=== PATIENT | male | born 1960 | race Caucasian/White ===

== ENCOUNTER 2016-07-21 09:16 | Emergency (ER) | payer OTHER ==
[~2016-07-21 09:16] MED LIST: PRED20TA PO
[2016-07-21 09:50] VITALS: BP 143/92
--- NOTE | 2016-07-21 15:38 | ED.ADGEN ---
Past History Past Medical History: High Cholesterol, Hypertension, Other Past Surgical History: Knee Replacement Alcohol Use: None Drug Use: None Adult General Chief Complaint Chief Complaint Staple removal right knee HPI HPI Patient is a 55-year-old male presents for staple removals right knee. Les placed 10 days ago in this ED, no complications. Review of Systems Review of Systems ROS as per HPI Allergies Allergies Allergies Coded Allergies Type Severity Reaction Last Updated Verified Penicillins Allergy Unknown 07/11/16 Yes morphine Allergy Unknown 07/11/16 Yes Uncoded Allergies Type Severity Reaction Last Updated Verified STANTONS Allergy Unknown 07/11/16 Physical Exam Physical Exam Constitutional: Well developed, well nourished, no acute distress, non-toxic appearance. Extremities: Right knee, healing incision without cellulitis, les intact. Current Patient Data Vital Signs Vital Signs Date Time Temp Pulse Resp B/P Pulse Ox O2 Delivery O2 Flow Rate FiO2 07/21/16 09:50 78 18 143/92 95 Room Air 07/21/16 09:16 97.4 EKG EKG [] Radiology/Procedures Radiology/Procedures [] Impressions: Encounter for les removal. Course & Med Decision Making Course & Med Decision Making Pertinent Labs and Imaging studies reviewed. (See chart for details) [Sutures removed per nursing without complication.] Final Impression Final Impression [1. Encounter for staple removal] Problems: Dragon Disclaimer Dragon Disclaimer This electronic medical record was generated, in whole or in part, using a voice recognition dictation system. PATTI SCHWAB DO Jul 21, 2016 15:38
== END 2016-07-21 09:50 | disposition home or self-care (01) ==
LOC: ER 09:16
DX: S81.011D Laceration without foreign body, right knee, subsequent encounter (principal); E78.00 Pure hypercholesterolemia, unspecified; I10 Essential (primary) hypertension; Z96.651 Presence of right artificial knee joint; Z88.0 Allergy status to penicillin; Z88.5 Allergy status to narcotic agent; X58.XXXD Exposure to other specified factors, subsequent encounter; Y99.8 Other external cause status; Y92.89 Other specified places as the place of occurrence of the external cause
CPT/HCPCS: 99282

== ENCOUNTER 2017-09-12 18:57 | Observation (INO) | payer OTHER ==
[~2017-09-12] VITALS: Ht 185.4 cm; Wt 116.7 kg
--- NOTE | 2017-09-12 19:08 | ED.ADGEN ---
Past History Past Medical History: High Cholesterol, Hypertension, Other Past Surgical History: Knee Replacement, Other Alcohol Use: None Drug Use: None Adult General Chief Complaint Chief Complaint "..I guess I had some mental status changes... victorino dizzy... It may have the extra pain meds I took.. my knee have been giving me problems.. 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 Pt. has had bilateral knee surgery. Lt is in splint. Pt. has been following at [facility]. for the increased pain , edema in Rt. knee. Pt. reports they felt may have had lig. injury, damage his implants or possible infection of knee. Recently told infection was ruled out. Pt. has marked edema of Rt. knee. Pt. stated he took extra pain meds tonight and may be cause of his dizziness. Review of Systems Review of Systems Constitutional: Denies fever or chills [] Eyes: Denies change in visual acuity, redness, or eye pain [] HENT: Denies nasal congestion or sore throat [] Respiratory: Denies cough or shortness of breath [] Cardiovascular: No additional information not addressed in HPI [] GI: Denies abdominal pain, nausea, vomiting, bloody stools or diarrhea [] : Denies dysuria or hematuria [] Musculoskeletal: Denies back pain or joint pain []Bilateral Knee pain. Integument: Denies rash or skin lesions [] Neurologic: Denies headache, focal weakness or sensory changes []Dizzy. Confusion Endocrine: Denies polyuria or polydipsia [] All other systems were reviewed and found to be within normal limits, except as documented in this note. Family History Family History Non-contributory Current Medications Current Medications Current Medications Medications (Trade) Dose Ordered Sig/Deb Start Time Stop Time Status Last Admin Dose Admin Hydrocodone Bitartrate/ Ibuprofen (Vicoprofen 7.5-200) 2 tab PRN QID PRN 09/12/17 23:45 Iohexol (Omnipaque 300 Mg/ml) 75 ml 1X ONCE 09/12/17 22:00 09/12/17 22:01 DC 09/12/17 22:01 75 ML Lactated Ringer's 1,000 ml @ 1,000 mls/hr Q1H 09/12/17 19:15 09/12/17 20:14 DC 09/12/17 20:09 1,000 MLS/HR Allergies Allergies Allergies Coded Allergies Type Severity Reaction Last Updated Verified Penicillins Allergy Unknown 07/11/16 Yes Qqwgxcp-Hho-Aow Reductase Inhibitor Allergy Unknown 09/12/17 Yes morphine Allergy Unknown 07/11/16 Yes Physical Exam Physical Exam Constitutional: Moderately acute distress, non-toxic appearance. [] HENT: Normocephalic, atraumatic, bilateral external ears normal, oropharynx moist, no oral exudates, nose normal. [] Eyes: PERRLA, EOMI, conjunctiva normal, no discharge. [] Neck: Normal range of motion, no tenderness, supple, no stridor. []Palpable thyroid Cardiovascular:Heart rate regular rhythm, no murmur [] Lungs & Thorax: Bilateral breath sounds clear to auscultation [] Abdomen: Bowel sounds normal, soft, no tenderness, no masses, no pulsatile masses. [] Skin: Warm, dry, no erythema, no rash. [] Back: No tenderness, no CVA tenderness. [] Extremities: bilateral knee tenderness, no cyanosis, no clubbing, ROM intact, bilateral knee edema. [] No obvious cording noted. Neurologic: Alert and oriented X 3, normal motor function, normal sensory function, no focal deficits noted. []( Pt states Dizziness cleared by time he arrived at ED) Psychologic: Affect normal, judgement normal, mood normal. [] Current Patient Data Vital Signs Vital Signs Date Time Temp Pulse Resp B/P (MAP) Pulse Ox O2 Delivery O2 Flow Rate FiO2 09/12/17 23:31 67 18 138/82 (100) 97 Room Air 09/12/17 19:08 97.8 Lab Results Laboratory Tests Test 09/12/17 19:10 09/12/17 19:49 09/12/17 19:58 Urine Collection Type Unknown Urine Color Yellow Urine Clarity Cloudy Urine pH 8.0 Urine Specific [place] 1.020 Urine Protein Neg (NEG-TRACE) Urine Glucose (UA) Neg mg/dL (NEG) Urine Ketones (Stick) Neg mg/dL (NEG) Urine Blood Trace (NEG) Urine Nitrite Neg (NEG) Urine Bilirubin Neg (NEG) Urine Urobilinogen Dipstick 0.2 mg/dL (0.2 mg/dL) Urine Leukocyte Esterase Neg (NEG) Urine RBC 3-5 /HPF (0-2) Urine WBC 1-4 /HPF (0-4) Urine Squamous Epithelial Cells Occ /LPF Urine Amorphous Sediment Present /HPF Urine Bacteria 0 /HPF (0-FEW) Glucose (Fingerstick) 125 mg/dL (70-99) H White Blood Count 5.9 x10^3/uL (4.0-11.0) Red Blood Count 4.75 x10^6/uL (4.30-5.70) Hemoglobin 14.7 g/dL (13.0-17.5) Hematocrit 42.2 % (39.0-53.0) Mean Corpuscular Volume 89 fL (79-100) Mean Corpuscular Hemoglobin 31 pg (25-35) Mean Corpuscular Hemoglobin Concent 35 g/dL (31-37) Red Cell Distribution Width 12.7 % (11.5-14.5) Platelet Count 194 x10^3/uL (140-400) Neutrophils (%) (Auto) 62 % (31-73) Lymphocytes (%) (Auto) 26 % (24-48) Monocytes (%) (Auto) 8 % (0-9) Eosinophils (%) (Auto) 3 % (0-3) Basophils (%) (Auto) 1 % (0-3) Neutrophils # (Auto) 3.7 x10^3uL (1.8-7.7) Lymphocytes # (Auto) 1.5 x10^3/uL (1.0-4.8) Monocytes # (Auto) 0.5 x10^3/uL (0.0-1.1) Eosinophils # (Auto) 0.1 x10^3/uL (0.0-0.7) Basophils # (Auto) 0.1 x10^3/uL (0.0-0.2) Prothrombin Time 10.5 SEC (9.4-11.4) Prothrombin Time INR 1.0 (0.9-1.1) PTT 28 SEC (23-33) D-Dimer (Devika) 0.80 mg/L (0.00-0.50) H Sodium Level 142 mmol/L (136-145) Potassium Level 4.1 mmol/L (3.5-5.1) Chloride Level 101 mmol/L (98-107) Carbon Dioxide Level 30 mmol/L (21-32) Anion Gap 11 (6-14) Blood Urea Nitrogen 13 mg/dL (8-26) Creatinine 0.8 mg/dL (0.7-1.3) Estimated GFR (Cockcroft-Gault) 100.7 Glucose Level 129 mg/dL (70-99) H Calcium Level 9.5 mg/dL (8.5-10.1) Magnesium Level 2.1 mg/dL (1.8-2.4) Total Bilirubin 0.8 mg/dL (0.2-1.0) Direct Bilirubin < 0.1 mg/dL (0.0-0.2) Aspartate Amino Transferase (AST) 27 U/L (15-37) Alanine Aminotransferase (ALT) 48 U/L (16-63) Alkaline Phosphatase 78 U/L (46-116) Creatine Kinase 147 U/L (39-308) Creatine Kinase MB (Mass) 1.7 ng/mL (0.0-3.6) Creatine Kinase MB Relative Index 1.2 % (0-4) Troponin I Quantitative < 0.017 ng/mL (0-0.055) OU-Ykb-R-Type Natriuretic Peptide 39 pg/mL (0-124) Total Protein 7.7 g/dL (6.4-8.2) Albumin 4.8 g/dL (3.4-5.0) Lipase 98 U/L (73-393) EKG EKG My interpretation of EKG shows a sinus rhythm at 62 bpm. Mild leftward axis. No findings acute STEMI of contralateral changes. Radiology/Procedures Radiology/Procedures []CT of head shows no shift, mass, edema, bleed, or fracture. See formal report when available.[] My interpretation chest x-ray shows no acute cardiopulmonary findings. CT chest shows no central pulmonary embolism. Course & Med Decision Making Course & Med Decision Making Pertinent Labs and Imaging studies reviewed. (See chart for details) Discussed presentation, testing and tx. plan with Radhika Richard. Will admit for further eval. and tx. [] Final Impression Final Impression 1. Dizzy 2. Confusion- Transient ( Suspect - pain med related) 3. Elevated D-dimer 4. Leg Edema and Pain- Problems: Dragon Disclaimer Dragon Disclaimer This electronic medical record was generated, in whole or in part, using a voice recognition dictation system. NAHOMI ZAMAN MD September 12, 2017 19:08
[2017-09-12] MEDS ORDERED: IV RINGERS SOLUTION,LACTATED 1,000 ML IV SCH (19:15)
--- NOTE | 2017-09-12 20:01 | EKG ---
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
--- NOTE | 2017-09-12 20:01 | RAD ---
CT HEAD WO CONTRAST History: 836411.001 Dizziness, near syncope today, elevated blood pressure in ER. Comparison: None. Technique: Noncontrast CT imaging was performed of the head. Exposure: One or more of the following individualized dose reduction techniques were utilized for this examination: 1. Automated exposure control 2. Adjustment of the mA and/or kV according to patient size 3. Use of iterative reconstruction technique. Findings: No acute extra-axial or parenchymal hemorrhage is identified. There is no significant intra-axial mass effect, midline shift, or extra-axial fluid collection. The fitzpatrick-white differentiation of the major vascular territories is preserved. The ventricles, sulci, and cisterns are within normal limits in size and configuration. The mastoid air cells and the visualized paranasal sinuses are aerated. No acute calvarial abnormality is identified. Impression: 1. No acute intracranial abnormality is identified. Electronically signed by: Rob James MD (09/12/2017 7:58 PM) [facility]
[2017-09-12 20:16] LABS: BILIRUBIN,URINE NEG (NEG); COLOR,URINE YELLOW; GLUCOSE,URINE NEG (NEG)
[2017-09-12 20:17] LABS: BACTERIA,URINE 0 /HPF (0-FEW); CLARITY,URINE CLOUDY; NITRITE,URINE NEG (NEG); SQUAMOUS EPITHELIAL CELL,UR OCC /LPF; UROBILINOGEN,URINE 0.2 mg/dL (0.2 mg/dL)
[2017-09-12 20:18] LABS: BASO # 0.1 x10^3/uL (0.0-0.2); BASO % 1 % (0-3); EOS # 0.1 x10^3/uL (0.0-0.7); EOS % 3 % (0-3); HEMATOCRIT 42.2 % (39.0-53.0); HEMOGLOBIN 14.7 g/dL (13.0-17.5); LYMPH # 1.5 x10^3/uL (1.0-4.8); LYMPH % 26 % (24-48); MEAN CORPUSCULAR HEMOGLOBIN 31 pg (25-35); MEAN CORPUSCULAR HGB CONC 35 g/dL (31-37); MEAN CORPUSCULAR VOLUME 89 fL (79-100); MONO # 0.5 x10^3/uL (0.0-1.1); MONO % 8 % (0-9); NEUT # 3.7 x10^3uL (1.8-7.7); NEUT % 62 % (31-73); PLATELET COUNT 194 x10^3/uL (140-400); RED BLOOD COUNT 4.75 x10^6/uL (4.30-5.70); RED CELL DISTRIBUTION WIDTH 12.7 % (11.5-14.5); WHITE BLOOD COUNT 5.9 x10^3/uL (4.0-11.0)
[2017-09-12 20:18] LABS: AMORPHOUS SEDIMENT,UR PRESENT /HPF
[2017-09-12] MEDS ORDERED: IOHEXOL 300 MG/ML 75 ML VIAL. IV ONE (22:00)
--- NOTE | 2017-09-12 22:26 | RAD ---
Chest CTA History: Dizziness and weakness, elevated d-dimer, dyspnea Technique: After bolus of intravenous contrast, CT imaging was performed of the chest. Multiplanar reconstruction images to include MIP reconstruction images are submitted. Exposure: One or more of the following individualized dose reduction techniques were utilized for this examination: 1. Automated exposure control 2. Adjustment of the mA and/or kV according to patient size 3. Use of iterative reconstruction technique. Contrast: 75 cc Omnipaque 300 Comparison: None Findings: [ ] There is suboptimal contrast opacification of the more distal branches of pulmonary arteries, no central pulmonary embolism identified, limited evaluation for smaller and more peripheral emboli. There is no pneumothorax, lobar consolidation, significant pleural or pericardial effusion. Aortic root is slightly dilated at about 4.1 cm, no intraluminal flap. There is some coronary calcification. There is diffuse hepatic steatosis. There is small 0.2 cm nonobstructive right renal calculus. Visualized thyroid gland is somewhat enlarged. Impression: 1. No central pulmonary vessels is identified, limited evaluation of more distal branches on this exam. 2. There is ectatic aortic root about 4.1 cm, no intraluminal flap. There is some coronary calcification. 3. There is diffuse hepatic steatosis. There is small nonobstructive renal calculus. There is probable thyromegaly. Electronically signed by: Rob James MD (09/12/2017 10:23 PM) [facility]
[2017-09-12 23:27] LABS: ALBUMIN 4.8 g/dL (3.4-5.0); CALCIUM 9.5 mg/dL (8.5-10.1); GLUCOSE 129 mg/dL (70-99); TOTAL PROTEIN 7.7 g/dL (6.4-8.2)
[2017-09-12 23:28] LABS: ALK PHOS 78 U/L (46-116); ALT (SGPT) 48 U/L (16-63); ANION GAP 11 (6-14); AST (SGOT) 27 U/L (15-37); BLOOD UREA NITROGEN 13 mg/dL (8-26); CARBON DIOXIDE 30 mmol/L (21-32); CHLORIDE 101 mmol/L (98-107); CREATININE 0.8 mg/dL (0.7-1.3); GFR 100.7; POTASSIUM 4.1 mmol/L (3.5-5.1); SODIUM 142 mmol/L (136-145); TOTAL BILIRUBIN 0.8 mg/dL (0.2-1.0)
[2017-09-12 23:30] LABS: DIRECT BILIRUBIN < 0.1 mg/dL (0.0-0.2)
[2017-09-12 23:31] LABS: LIPASE 98 U/L (73-393); MAGNESIUM 2.1 mg/dL (1.8-2.4)
[2017-09-12] MEDS ORDERED: HYDROcodon/IBUPROFEN 7.5/200MG 1 TAB TABLET PO PRN (23:45)
[2017-09-13 00:45] VITALS: BP 144/85
[2017-09-13] MEDS ORDERED: PNEUMOCOCCAL VAX SCREEN. MC PRN (01:30)
[2017-09-13 02:04] LABS: AMPHETAMINE/METHAMPHETAMINE NEG (NEG); BARBITURATES NEG (NEG); BENZODIAZEPINES NEG (NEG); CANNABINOIDS NEG (NEG); COCAINE NEG (NEG); METHADONE NEG (NEG); OPIATES NEG (NEG); PHENCYCLIDINE NEG (NEG)
[2017-09-13] MEDS ORDERED: TAMS0.4C97 PO (03:59)
[2017-09-13] MEDS ORDERED: ESCITALOPRAM OX20 MG PO (03:59)
[2017-09-13] MEDS ORDERED: HYDR50TA PO (03:59)
[2017-09-13] MEDS ORDERED: MULT1TAB52 PO (03:59)
[2017-09-13] MEDS ORDERED: KRIL500C PO (03:59)
[2017-09-13] MEDS ORDERED: TRAM50TA PO (03:59)
[2017-09-13 05:35] VITALS: BP 137/84
[2017-09-13 06:35] LABS: BASO # 0.1 x10^3/uL (0.0-0.2); BASO % 1 % (0-3); EOS # 0.2 x10^3/uL (0.0-0.7); EOS % 3 % (0-3); HEMATOCRIT 40.7 % (39.0-53.0); HEMOGLOBIN 14.2 g/dL (13.0-17.5); LYMPH # 2.1 x10^3/uL (1.0-4.8); LYMPH % 31 % (24-48); MEAN CORPUSCULAR HEMOGLOBIN 31 pg (25-35); MEAN CORPUSCULAR HGB CONC 35 g/dL (31-37); MEAN CORPUSCULAR VOLUME 89 fL (79-100); MONO # 0.7 x10^3/uL (0.0-1.1); MONO % 10 % (0-9); NEUT # 3.7 x10^3uL (1.8-7.7); NEUT % 55 % (31-73); PLATELET COUNT 180 x10^3/uL (140-400); RED BLOOD COUNT 4.58 x10^6/uL (4.30-5.70); RED CELL DISTRIBUTION WIDTH 12.7 % (11.5-14.5); WHITE BLOOD COUNT 6.7 x10^3/uL (4.0-11.0)
[2017-09-13] MEDS ORDERED: traMADol 50 MG TABLET PO PRN (07:15)
[2017-09-13] MEDS ORDERED: PNEUMOC CONJ VACC 23-VALENT 0.5 ML VIAL. VAX IM ONE (09:00)
[2017-09-13] MEDS ORDERED: MULTIVITAMIN with MINERAL TABLET. PO SCH (09:00)
[2017-09-13] MEDS ORDERED: ASPIRIN 81 MG TAB.CHEW PO SCH (09:00)
[2017-09-13] MEDS ORDERED: ENOXAPARIN ** NOTE DOSE ** SYRINGE SQ SCH (09:00)
--- NOTE | 2017-09-13 09:36 | RAD ---
EXAM: Chest, 2 views. HISTORY: Dyspnea. COMPARISON: None. FINDINGS: Frontal and lateral views of the chest are obtained. There is no infiltrate, effusion or pneumothorax. The heart is normal in size. IMPRESSION: No acute pulmonary finding. Electronically signed by: Arelis Geiger MD (09/13/2017 9:33 AM) [facility]
[2017-09-13 10:00] LABS: CALCIUM 9.5 mg/dL (8.5-10.1); CREATININE 0.9 mg/dL (0.7-1.3); GFR 87.9
[2017-09-13 10:25] VITALS: BP 129/77
--- NOTE | 2017-09-13 14:30 | RAD ---
Bilateral Lower Extremity Venous Doppler Ultrasound Indication: Elevated d-dimer, lower extremity edema. Comparison: None. Procedure: Color Doppler, spectral Doppler, and grayscale images with and without compression are obtained in the area of the common femoral vein, superficial femoral vein - femoral vein junction, main femoral vein (superficial femoral vein) and popliteal vein. Veins of the proximal calf are also imaged. Findings: There is normal duplex flow, color flow and compressibility of all visualized vein segments. There is no evidence of deep venous thrombosis. Impression: No evidence of lower extremity deep venous thrombosis. Electronically signed by: Javier Hernandez MD (09/13/2017 2:27 PM) [place] [id number]
[2017-09-13 15:54] VITALS: BP 133/72
--- NOTE | 2017-09-13 17:38 | SSS ---
ADMIT DATE: 09/13/2017 HISTORY OF PRESENT ILLNESS: The patient is a 56-year-old male patient, who basically came to the Emergency Room complaining that he is a kind of dizzy. He was in a restaurant with his and she thought he was somehow confused and did complain of being dizzy and thinks that he has taken extra pain medication that might have caused him to have this feeling of dizziness. He was evaluated extensively in the Emergency Room and all his labs are within acceptable range except his D-dimer was high, so he underwent CT angio as well as bilateral lower extremity Doppler ultrasound and there was no evidence of DVT or pulmonary embolism. The patient remained stable throughout his stay here, no recurrence of symptoms, has been up and about without any difficulty and a decision was made to discharge him home to follow with his primary care physician in ____. He apparently has had his right knee total arthroplasty in 06/2003 and in 06/2016, he fell and on ice and developed pain, swelling and unable since then to walk and his range of motion has been limited. He apparently has had multiple imaging modalities including x-ray, CT scan and bone scan and there is no evidence that he has any infection or loosening of his prosthetic, right knee. He also wears a brace in his left knee. PAST MEDICAL HISTORY: Significant for hyperlipidemia, recurrent kidney stone formation, osteoarthritis, obstructive sleep apnea, benign prostatic hypertrophy, esophagogastroduodenoscopy and colonoscopy. PAST SURGICAL HISTORY: Significant for type right total knee arthroplasty, cystoscopy and retrograde pyelography as well as extracorporeal shock wave lithotripsy. He has left cataract extraction, bilateral carpal tunnel release. ALLERGIES: He is allergic to PENICILLIN, STATINS AND MORPHINE. MEDICATIONS: He is currently on following medications: He is on tramadol 50 mg every 6 hours as needed, escitalopram oxalate 20 mg at bedtime, hydroxyzine 50 mg at bedtime, multivitamin 1 tablet once a day, and Krill oil 500 mg daily. FAMILY HISTORY: He has 2 younger sisters, and both have hyperlipidemia. His father is still alive at the age of 78 and is known to have COPD, osteoarthritis and renal stones and mother is still alive at the age of 79. She has Lewy body dementia and breast cancer and type 2 diabetes. SOCIAL HISTORY: He is , has 1 daughter and 2 sons. He is an ex-smoker, quit about 18 years ago. He does not drink alcohol or use any recreational drugs. 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 REVIEW OF SYSTEMS: The patient denied any blurring of vision. He has cataract removed from his left eye. Denied any glaucoma or macular degeneration. Denied any earache, tinnitus or sensorineural deafness. Denied any nosebleeds, stuffy nose or postnasal drip. Denied any sore throat, sore tongue, toothache, hoarseness of voice or difficulty swallowing. Denied any nausea, vomiting, diarrhea or constipation. Denied any hematemesis, melena or hematochezia. Denied any dysuria, frequency or hematuria. Denied any chest pain, shortness of breath, orthopnea or paroxysmal nocturnal dyspnea. Denied any cough, phlegm or hemoptysis. Denied any chills, rigors or fever. PHYSICAL EXAMINATION: GENERAL: On examining him, he looked well and was clearly in no apparent respiratory distress, slightly pale, no jaundice, cyanosis, or thyromegaly. No jugular venous distension. No lower limb edema. VITAL SIGNS: His heart rate was 79, blood pressure was 129/77, temperature was 98.9, respiratory rate 20, and oxygen saturation was 96%. HEENT: Showed normocephalic, atraumatic. NECK: Supple. HEART: Showed normal first and second heart sounds. No gallop, rub or murmur. CHEST: Clear to auscultation. No crepitation or rhonchi. ABDOMEN: Distended, soft, nontender. NEUROLOGIC: He was awake, alert, responding appropriately. Cranial nerves intact. EXTREMITIES: He moves extremities without difficulty. He ambulates without assistance or assistive devices. He has brace on both knees. LABORATORY DATA: Showed a white cell count of 6700, hemoglobin 14, hematocrit 41, MCV 89 and platelet count of 180,000. His serum sodium was 143, potassium 4, chloride 106, bicarbonate 30, anion gap of 7, BUN 13, creatinine 0.9, estimated GFR was 88 mL per minute, glucose 112, and calcium was 9.5. His calcium was ____. Magnesium 2.1. Total bilirubin, AST, ALT, alkaline phosphatase were normal. His beta natriuretic peptide was 39. Total protein was 7.7, albumin was 4.8 and TSH was 98. His prothrombin time was ____, INR of 1, and aPTT was 28. D-dimer was 0.8. Urinalysis was essentially unremarkable and toxic screen was negative. He has had CT scan of the head, which showed no acute intracranial abnormality identified. Chest x-ray showed the frontal lateral views of the chest are obtained. There is no infiltrate, effusion or pneumothorax. Heart is normal in size and CT angio of the chest showed that there is no central pulmonary infiltrates identified. There is ectatic aortic root about 4.1 cm. No intraluminal flap. There is some coronary calcification. There is diffuse hepatic steatosis. There is small nonocclusive nonobstructive renal calculus. There is probably thyromegaly. The bilateral lower extremity venous Doppler ultrasound showed no evidence of lower extremity deep vein thrombosis. ASSESSMENT AND PLAN: The patient remained hemodynamically stable, afebrile, has no further episodes of confusion or dizziness. A decision was made to discharge him home to continue all his medication and follow up with his primary care physician. JOSEPHINE CRUZ MD DR: DAX/ehsan JOB#: [id number] / [id number]
[2017-09-13] MEDS ORDERED: CITALOPRAM 20 MG TABLET. PO SCH (21:00)
[2017-09-13] MEDS ORDERED: hydrOXYzine HCL 25 MG TABLET PO SCH (21:00)
== END 2017-09-13 16:14 | disposition home or self-care (01) ==
LOC: ER 18:57 → 1 SOUTH 23:45 → INTOOBSV 23:45
PROVIDERS: ADMIT Internal Medicine; ATTEND Internal Medicine
DX: R42 Dizziness and giddiness (principal); E78.00 Pure hypercholesterolemia, unspecified; E78.5 Hyperlipidemia, unspecified; M19.90 Unspecified osteoarthritis, unspecified site; I10 Essential (primary) hypertension; G47.33 Obstructive sleep apnea (adult) (pediatric); N40.0 Benign prostatic hyperplasia without lower urinary tract symptoms; Z80.3 Family history of malignant neoplasm of breast; Z82.5 Family history of asthma and other chronic lower respiratory diseases; Z83.3 Family history of diabetes mellitus; Z87.442 Personal history of urinary calculi; Z96.651 Presence of right artificial knee joint; Z23 Encounter for immunization
CPT/HCPCS: 36415; 70450; 71046; 71275; 80048; 80076; 80307; 81001; 82553; 82947; 83690; 83735; 83880; 84443; 84484; 85025; 85379; 85610; 85730; 90471; 90732; 93005; 93970; 96360; 96361; 96372; 99285; G0238; G0378; J1650; J7120; Q9967; G0379; G0479

== ENCOUNTER 2018-08-21 16:16 | Emergency (ER) | payer OTHER ==
[~2018-08-21] VITALS: Ht 185.4 cm; Wt 125.4 kg
[~2018-08-21 16:16] MED LIST changes: +ESCITALOPRAM OX20 MG PO; +HYDR50TA PO; +KRIL500C PO; +MULT1TAB52 PO; +TAMS0.4C97 PO; +TRAM50TA PO
[2018-08-21] MEDS ORDERED: OXYMETAZOLINE 0.05% NASAL SPRAY 15ML BOTTLE. NS ONE (16:45)
--- NOTE | 2018-08-21 16:49 | PHYS DOC ---
Past History Past Medical History: Anxiety, Other Past Surgical History: Knee Replacement, Other Alcohol Use: Rarely Drug Use: None Adult General Chief Complaint Chief Complaint: NOSEBLEED HPI HPI 57-year-old male presents with left-sided nosebleed. The patient is at increased of nosebleeds last couple weeks. This nosebleed lasted for more than 20 minutes today and so he came to the emergency room. He was concerned it might rebleed and would need intervention. He was able to get to stop bleeding prior to arrival. The patient wears CPAP at night with humidifier. The patient also uses nasal saline about every other day. He has not been using any topical moisturizers. Patient denies shortness of breath, dizziness or other symptoms of anemia. Patient denies fever or chills. He is not on any antiplatelets or blood thinners. Review of Systems Review of Systems Constitutional: Denies fever or chills [] Eyes: Denies change in visual acuity, redness, or eye pain [] HENT: Denies nasal congestion or sore throat. Nosebleed [] Respiratory: Denies cough or shortness of breath [] Cardiovascular: No additional information not addressed in HPI [] GI: Denies abdominal pain, nausea, vomiting, bloody stools or diarrhea [] : Denies dysuria or hematuria [] Musculoskeletal: Denies back pain or joint pain [] Integument: Denies rash or skin lesions [] Neurologic: Denies headache, focal weakness or sensory changes [] Endocrine: Denies polyuria or polydipsia [] All other systems were reviewed and found to be within normal limits, except as documented in this note. Current Medications Current Medications Current Medications Medications (Trade) Dose Ordered Sig/Deb Start Time Stop Time Status Last Admin Dose Admin Oxymetazoline HCl (Afrin) 2 spray 1X ONCE 08/21/18 16:45 08/21/18 16:46 DC 08/21/18 16:39 2 SPRAY Allergies Allergies Allergies Coded Allergies Type Severity Reaction Last Updated Verified Penicillins Allergy Intermediate 08/21/18 Yes Mrwzhgj-Tzj-Jzy Reductase Inhibitor Allergy Intermediate 08/21/18 Yes morphine Allergy Intermediate 08/21/18 Yes Physical Exam Physical Exam Constitutional: Well developed, well nourished, no acute distress, non-toxic appearance. [] HENT: Normocephalic, atraumatic, bilateral external ears normal, oropharynx moist, no oral exudates, nose with recent superficial clot of the left naris against the septum. No septal hematoma.. [] Eyes: PERRLA, EOMI, conjunctiva normal, no discharge. [] Neck: Normal range of motion, no tenderness, supple, no stridor. [] Cardiovascular:Heart rate regular rhythm, no murmur [] Lungs & Thorax: Bilateral breath sounds clear to auscultation [] Abdomen: Bowel sounds normal, soft, no tenderness, no masses, no pulsatile masses. [] Skin: Warm, dry, no erythema, no rash. [] Back: No tenderness, no CVA tenderness. [] Extremities: No tenderness, no cyanosis, no clubbing, ROM intact, no edema. [] Neurologic: Alert and oriented X 3, normal motor function, normal sensory function, no focal deficits noted. [] Psychologic: Affect normal, judgement normal, mood normal. [] Current Patient Data Vital Signs Vital Signs Date Time Temp Pulse Resp B/P (MAP) Pulse Ox O2 Delivery O2 Flow Rate FiO2 08/21/18 16:24 98.3 82 18 95 Room Air EKG EKG [] Radiology/Procedures Radiology/Procedures [] Course & Med Decision Making Course & Med Decision Making Pertinent Labs and Imaging studies reviewed. (See chart for details) Patient has an anterior nosebleed on the left side. I have given him Afrin in the ED. I have also advised intermittent Afrin therapy as necessary as well as a strategy for direct compression of the area. The patient will follow up with his PCP and get an ENT consult to consider further interventions needed since his recurrent bleed from the same area every time. We'll also start using Vaseline for moisturizer. He is stable for discharge at this time. [] Dragon Disclaimer Dragon Disclaimer This electronic medical record was generated, in whole or in part, using a voice recognition dictation system. Departure Departure: Impression: Primary Impression: Left-sided nosebleed Disposition: HOME, SELF-CARE Condition: STABLE Referrals: LEYDI AMARO (PCP) Patient Instructions: Nosebleed, [id number] PATTI ALCANTARA DO Aug 21, 2018 16:49
[2018-08-21 17:01] VITALS: BP 128/86
== END 2018-08-21 17:01 | disposition home or self-care (01) ==
LOC: ER 16:16
DX: R04.0 Epistaxis (principal); F41.9 Anxiety disorder, unspecified; Z88.0 Allergy status to penicillin; Z88.5 Allergy status to narcotic agent; Z88.8 Allergy status to other drugs, medicaments and biological substances
CPT/HCPCS: 99282

== ENCOUNTER → 2020-11-04 | Outpatient (CLI) | payer OTHER ==
[~2020-11-04] MED LIST changes: +MULT-445 PO; -MULT1TAB52 PO
--- NOTE | 2020-11-04 10:42 | RAD ---
Exam: CT abdomen/pelvis without intravenous contrast Indication: Acute sharp bladder pain, suprapubic pain Comparison: None Technique: Helical CT imaging performed of the abdomen and pelvis without the use of intravenous cont rast. Sagittal and coronal reformats were obtained. One or more of the following individualized dose reduction techniques were utilized for this examinat ion: 1. Automated exposure control 2. Adjustment of the mA and/or kV according to patient size 3. Use of iterative reconstruction technique. Findings: Inherently limited evaluation without intravenous contrast. Lower chest: Normal. Liver: Liver is at the upper limit of normal in size and diffusely low in attenuation. There are 2 hy podense lesions in the left hepatic lobe measuring up to 1.3 cm, likely simple cysts. Gallbladder/Biliary Tree: Normal. Pancreas: Normal. Spleen: Normal. Adrenal Glands: Normal. Kidneys/Ureters/Bladder: There is a calculus in the distal right ureter measuring 3 cm and in the mid right ureter measuring 4 mm. Additional 2 mm calculus in the bladder layering posteriorly on the lef t. No hydronephrosis or hydroureter. There is bilateral nephrolithiasis with calculi measuring up to 5 mm. The left ureter is normal. No bladder wall thickening. Reproductive Organs: Prostate gland is normal. Stomach, small bowel, and colon: Stomach is normal. There is no small bowel obstruction. Appendix is normal. Mild sigmoid diverticulosis. Vasculature: Abdominal aorta is normal in caliber. Lymph Nodes: No lymphadenopathy. Peritoneum and retroperitoneum: No free fluid or free air. Bones: No acute osseous abnormality. Miscellaneous: There are small fat-containing inguinal hernias. IMPRESSION: 1. Right ureterolithiasis with one calculus in the mid ureter measuring 4 mm and one calculus in the distal ureter measuring 3 mm. There is a 2 mm calculus in the bladder. Bilateral nephrolithiasis. No hydronephrosis or hydroureter. 2. Hepatic steatosis and borderline hepatomegaly. There are 2 low-density lesions the left hepatic l obe measuring up to 1.3 cm, likely simple cysts. 3. Sigmoid diverticulosis. 4. Small fat-containing inguinal hernias. Electronically signed by: Mary Camacho MD (11/04/2020 10:39 AM) [id number]
== END ==
LOC: CT 09:08
PROVIDERS: ATTEND Family Medicine
DX: N20.2 Calculus of kidney with calculus of ureter (principal); N21.0 Calculus in bladder; K76.0 Fatty (change of) liver, not elsewhere classified; R16.0 Hepatomegaly, not elsewhere classified; K57.30 Diverticulosis of large intestine without perforation or abscess without bleeding; K40.90 Unilateral inguinal hernia, without obstruction or gangrene, not specified as recurrent; K76.89 Other specified diseases of liver
CPT/HCPCS: 74176

== ENCOUNTER 2020-11-28 02:26 | Emergency (ER) | payer OTHER ==
[~2020-11-28] VITALS: Ht 185.4 cm; Wt 125.4 kg
--- NOTE | 2020-11-28 02:48 | PHYS DOC ---
Past History Past Medical History: Anxiety, Other Past Surgical History: Knee Replacement, Other Alcohol Use: Rarely Drug Use: None General Adult EDM: Chief Complaint: FLANK PAIN HPI: HPI: ".. They took out my renal stent. on the right... now I got pain on the Lt..... I used to have a lot of kidney stones and have gone a long time without getting repeat episodes.. But now having repeat episodes. I do have a follow-up at [facility] with urology... Patient is a 59 year old male who presents with above hx and complaints recent episodes of kidney stones. Previously had stent placed on right ureter which was recently removed. Does have follow-up appointment at [facility] urology clinic. Patient's pain tonight is primary on the left. Patient denies any history immunosuppression. No recent travel. No specific ill contacts. Has past medical history of anxiety, sleep apnea which he treats with CPAP, epistaxis, anemia, diabetes and degenerative joint changes. Patient normally follows at [place]. Review of Systems: Review of Systems: Constitutional: Denies fever or chills Eyes: Denies change in visual acuity HENT: Denies nasal congestion or sore throat Respiratory: Denies cough or shortness of breath Cardiovascular: Denies chest pain or edema GI: Complains of left flank abdominal pain, nausea, vomiting,. Denies bloody stools or diarrhea : Denies dysuria Musculoskeletal: Complains of left flank back pain. Does have history joint degenerative joint changes. Integument: Denies rash Neurologic: Denies headache, focal weakness or sensory changes Endocrine: Denies polyuria or polydipsia Lymphatic: Denies swollen glands Psychiatric: Denies depression or anxiety Family History: Family History: Noncontributory to presentation Current Medications: Current Meds: See nursing for home meds Allergies: Allergies: Allergies Coded Allergies Type Severity Reaction Last Updated Verified Penicillins Allergy Intermediate 08/21/18 Yes Zexgqfp-Rec-Akq Reductase Inhibitor Allergy Intermediate 08/21/18 Yes morphine Allergy Intermediate 08/21/18 Yes Physical Exam: PE: Constitutional: Well developed, well nourished, in acute distress, non-toxic appearance. [] HENT: Normocephalic, atraumatic, bilateral external ears normal, oropharynx moist, no oral exudates, nose normal. [] Eyes: PERRLA, EOMI, conjunctiva normal, no discharge. [] Neck: Normal range of motion, no tenderness, supple, no stridor. [] Cardiovascular:Heart rate regular rhythm, no murmur [] Lungs & Thorax: Bilateral breath sounds equal apex auscultation [] Abdomen: Bowel sounds decreased, soft, no tenderness, no masses, no pulsatile masses. [] Skin: Warm, dry, no erythema, no rash. [] Back: No tenderness, left CVA tenderness. [] Extremities: No tenderness, no cyanosis, no clubbing, ROM intact, no edema. [] Neurologic: Alert and oriented X 3, normal motor function, normal sensory function, no focal deficits noted. [] Psychologic: Affect anxious, judgement normal, mood normal. [] EKG: EKG: My interpretation EKG shows a sinus bradycardia at 60 bpm. Left axis. No findings acute STEMI of contralateral changes. [] Radiology/Procedures: Radiology/Procedures: [place] [address] IMAGING REPORT Signed PATIENT: DESHAWN VARMA S ACCOUNT: [id number] : 1960 LOCATION: ER AGE: 59 SEX: M EXAM STATUS: PRE ER ORD. PHYSICIAN: NAHOMI ZAMAN MD REASON: hx kidney stone,, recent removal of stent PROCEDURE: CT ABDOMEN PELVIS WO CONTRAST CT ABDOMEN+PELVIS WO INDICATION: hx kidney stone,, recent removal of stent EXAM: Noncontrast CT of the abdomen and pelvis. Coronal and sagittal reformatted images were performed. PQRS compliance statement: One or more of the following individualized dose reduction techniques were utilized for this examination: 1. Automated exposure control 2. Adjustment of the mA and/or kV according to patient size 3. Use of iterative reconstruction technique COMPARISON: CT abdomen pelvis 11/04/2020 FINDINGS: No free air, free fluid, or fluid collection. Lower chest: The visualized lower lungs are aerated. No pleural or pericardial effusion. ABDOMEN: Liver: Liver measures 18.5 cm craniocaudad. Diffuse hepatic steatosis. Gallbladder and biliary: Normal gallbladder without radiopaque stone. Normal caliber bile ducts. Spleen: Normal spleen. Pancreas: The noncontrast pancreas is homogeneous in attenuation without peripancreatic inflammatory changes. Adrenal glands: Normal adrenal glands. Kidneys and ureters: Mild left hydroureteronephrosis with a 6 x 4 mm calculus at the ureterovesicular junction. Additional 4 x 2 mm calculus on the right at the ureterovesicular junction. Multiple additional nonobstructive bilateral renal calculi. GI tract: The stomach is decompressed and poorly evaluated. Normal caliber small bowel and colon. Normal appendix. Colonic diverticulosis. Vascular structures: Normal caliber abdominal aorta. Lymph nodes: No lymphadenopathy in the abdomen or pelvis. PELVIS: Genitourinary system: Urinary bladder is decompressed with at least 4 small calculi measuring 2 to 4 mm. Circumferential bladder wall thickening SKELETAL STRUCTURES AND SOFT TISSUES: Degenerative changes of the spine. IMPRESSION: 1. Mild left hydroureteronephrosis with a 6 x 4 mm calculus at the left ureterovesicular junction. 2. Additional 4 x 2 mm calculus at the right ureterovesicular junction. No right hydronephrosis. 3. Several small bladder calculi measuring 2-4 mm. 4. Bladder wall thickening could relate to underdistention or potentially cystitis. 5. Multiple additional nonobstructive bilateral renal calculi. Electronically signed by: Akila Meraz MD (11/28/2020 3:27 AM) [facility] [][address] [address] IMAGING REPORT Signed PATIENT: DESHAWN VARMA ACCOUNT: [id number] : 1960 LOCATION: ER AGE: 59 SEX: M EXAM STATUS: PRE ER ORD. PHYSICIAN: NAHOMI ZAMAN MD REASON: flank pain PROCEDURE: ACUTE ABDOMEN SERIES XR ABDOMEN COMP ACUTE INDICATION: flank pain COMPARISON STUDY: None. FINDINGS: Lungs: Normal lung volume. No pulmonary mass or consolidation. The tracheobronchial tree and hilar structures are normal. Pleura: No pleural effusion or pneumothorax. Heart and Mediastinum: The cardiomediastinal silhouette is normal. The great vessels of the thorax are normal. Abdomen: Nonobstructive bowel gas pattern. Small calcifications overlying the kidneys and bladder region consistent with patient's history of renal calculi. IMPRESSION: 1. Nonobstructive bowel gas pattern. 2. No focal airspace disease. 3. Calcific patient's overlying the kidneys and bladder consistent with history of calculi. Electronically signed by: Akila Meraz MD (11/28/2020 3:28 AM) [facility] DICTATED AND SIGNED BY: AKILA MERAZ MD DATE: 11/28/20 0326 CC: LEYDI AMARO; NAHOMI ZAMAN MD ~MTH0 0 Heart Score: C/O Chest Pain: N/A HEART Score for Chest Pain: HEART Score for Chest Pain Response (Comments) Value History Slighlty/Non-Suspicious 0 ECG Normal 0 Age >45 - < 65 1 Risk Factors 1 or 2 Risk Factors 1 Troponin < Normal Limit 0 Total 2 Risk Factors: Risk Factors: DM, Current or recent (<one month) smoker, HTN, HLP, family history of CAD, obesity. Risk Scores: Score 0 - 3: 2.5% MACE over next 6 weeks - Discharge Home Score 4 - 6: 20.3% MACE over next 6 weeks - Admit for Clinical Observation Score 7 - 10: 72.7% MACE over next 6 weeks - Early Invasive Strategies Course & Med Decision Making: Course & Med Decision Making Pertinent Labs and Imaging studies reviewed. (See chart for details) Patient stay on a clear fluid diet push fluids. Push vitamin C drinks. Keep follow-up with urology. Take Cipro 500 mg twice a day. Follow-up urine cultures. Take Zofran 8 mg up to 4 times a day for nausea and vomiting. Take Flomax or daily. Tylenol and ibuprofen for pain for marked pain may take Vicoprofen up to 4 times a day. Must keep follow-up. Impression: 1. Bilateral ureterovesical junction kidney stones. No hydronephrosis on the r ight. Does have hydronephrosis on the left. 2. Elevated glucose 157 [] Dragon Disclaimer: [place] Disclaimer: This electronic medical record was generated, in whole or in part, using a voice recognition dictation system. Departure Departure: Referrals: LEYDI AMARO (PCP) Scripts Hydrocodone/Ibuprofen (HYDROCODONE-IBUPROFEN 7.5-200 ) 1 Each Tablet 1 TAB PO PRN Q6HRS PRN for PAIN, #30 TAB 0 Refills Prov: NAHOMI ZAMAN MD 11/28/20 Ondansetron Hcl (ZOFRAN) 4 Mg Tablet 8 MG PO QIDPRN PRN for NAUSEA/VOMITING, #30 TAB Prov: NAHOMI ZAMAN MD 11/28/20 Ciprofloxacin (CIPRO) 500 Mg/5 Ml Claritza.mc.rec 500 MG PO BID for kidney stones for 7 Days, MISC Prov: NAHOMI ZAMAN MD 11/28/20 Tamsulosin Hcl (FLOMAX) 0.4 Mg Cap.er.24h 0.4 MG PO DAILY for kidney stone, #30 CAP.SR Prov: NAHOMI ZAMAN MD 11/28/20 NAHOMI ZAMAN MD Nov 28, 2020 02:48
[2020-11-28] MEDS ORDERED: TAMSULOSIN 0.4 MG CAP.ER.24H. PO ONE (03:00)
[2020-11-28] MEDS ORDERED: FAMOTIDINE 20 MG/2 ML VIAL IVP ONE (03:00)
[2020-11-28] MEDS ORDERED: KETOROLAC 30 MG/ML VIAL. IVP ONE (03:00)
[2020-11-28] MEDS ORDERED: ONDANSETRON PF 4 MG/2 ML VIAL. IVP ONE (03:00)
[2020-11-28] MEDS ORDERED: IV RINGERS SOLUTION,LACTATED 1,000 ML IV SCH (03:00)
--- NOTE | 2020-11-28 03:29 | RAD ---
CT ABDOMEN+PELVIS WO INDICATION: hx kidney stone,, recent removal of stent EXAM: Noncontrast CT of the abdomen and pelvis. Coronal and sagittal reformatted images were perform ed. PQRS compliance statement: One or more of the following individualized dose reduction techniques were utilized for this examinat ion: 1. Automated exposure control 2. Adjustment of the mA and/or kV according to patient size 3. Use of iterative reconstruction technique COMPARISON: CT abdomen pelvis 11/04/2020 FINDINGS: No free air, free fluid, or fluid collection. Lower chest: The visualized lower lungs are aerated. No pleural or pericardial effusion. ABDOMEN: Liver: Liver measures 18.5 cm craniocaudad. Diffuse hepatic steatosis. Gallbladder and biliary: Normal gallbladder without radiopaque stone. Normal caliber bile ducts. Spleen: Normal spleen. Pancreas: The noncontrast pancreas is homogeneous in attenuation without peripancreatic inflammatory changes. Adrenal glands: Normal adrenal glands. Kidneys and ureters: Mild left hydroureteronephrosis with a 6 x 4 mm calculus at the ureterovesicular junction. Additional 4 x 2 mm calculus on the right at the ureterovesicular junction. Multiple addit ional nonobstructive bilateral renal calculi. GI tract: The stomach is decompressed and poorly evaluated. Normal caliber small bowel and colon. Nor mal appendix. Colonic diverticulosis. Vascular structures: Normal caliber abdominal aorta. Lymph nodes: No lymphadenopathy in the abdomen or pelvis. PELVIS: Genitourinary system: Urinary bladder is decompressed with at least 4 small calculi measuring 2 to 4 mm. Circumferential bladder wall thickening SKELETAL STRUCTURES AND SOFT TISSUES: Degenerative changes of the spine. IMPRESSION: 1. Mild left hydroureteronephrosis with a 6 x 4 mm calculus at the left ureterovesicular junction. 2. Additional 4 x 2 mm calculus at the right ureterovesicular junction. No right hydronephrosis. 3. Several small bladder calculi measuring 2-4 mm. 4. Bladder wall thickening could relate to underdistention or potentially cystitis. 5. Multiple additional nonobstructive bilateral renal calculi. Electronically signed by: oRb Meraz MD (11/28/2020 3:27 AM) [facility]
--- NOTE | 2020-11-28 03:31 | RAD ---
XR ABDOMEN COMP ACUTE INDICATION: flank pain COMPARISON STUDY: None. FINDINGS: Lungs: Normal lung volume. No pulmonary mass or consolidation. The tracheobronchial tree and hilar st ructures are normal. Pleura: No pleural effusion or pneumothorax. Heart and Mediastinum: The cardiomediastinal silhouette is normal. The great vessels of the thorax ar e normal. Abdomen: Nonobstructive bowel gas pattern. Small calcifications overlying the kidneys and bladder reg ion consistent with patient's history of renal calculi. IMPRESSION: 1. Nonobstructive bowel gas pattern. 2. No focal airspace disease. 3. Calcific patient's overlying the kidneys and bladder consistent with history of calculi. Electronically signed by: Rob Meraz MD (11/28/2020 3:28 AM) [facility]
[2020-11-28 03:52] LABS: BILIRUBIN,URINE NEG (NEG); CLARITY,URINE CLEAR; COLOR,URINE YELLOW; GLUCOSE,URINE NEG (NEG); NITRITE,URINE NEG (NEG); UROBILINOGEN,URINE 0.2 mg/dL (0.2 mg/dL); WBC,URINE OCC /HPF (0-4)
[2020-11-28 03:53] LABS: BACTERIA,URINE 0 /HPF (0-FEW); SQUAMOUS EPITHELIAL CELL,UR FEW /LPF
[2020-11-28 04:02] LABS: ALBUMIN 4.4 g/dL (3.4-5.0); CALCIUM 8.8 mg/dL (8.5-10.1); CREATININE 1.2 mg/dL (0.7-1.3); DIRECT BILIRUBIN 0.1 mg/dL (0.0-0.2); GFR 62.4; TOTAL BILIRUBIN 0.6 mg/dL (0.2-1.0); TOTAL PROTEIN 7.4 g/dL (6.4-8.2)
[2020-11-28 04:08] LABS: BARBITURATES NEG (NEG); BENZODIAZEPINES NEG (NEG); CANNABINOIDS NEG (NEG); COCAINE NEG (NEG); METHADONE NEG (NEG); OPIATES NEG (NEG); PHENCYCLIDINE NEG (NEG)
[2020-11-28 04:18] LABS: AMPHETAMINE/METHAMPHETAMINE NEG (NEG)
[2020-11-28 04:33] LABS: BASO % 1 % (0-3); EOS # 0.2 x10^3/uL (0.0-0.7); EOS % 3 % (0-3); HEMATOCRIT 41.7 % (39.0-53.0); HEMOGLOBIN 14.3 g/dL (13.0-17.5); LYMPH % 30 % (24-48); MEAN CORPUSCULAR HEMOGLOBIN 31 pg (25-35); MEAN CORPUSCULAR HGB CONC 34 g/dL (31-37); MEAN CORPUSCULAR VOLUME 91 fL (79-100); MONO # 0.7 x10^3/uL (0.0-1.1); MONO % 10 % (0-9); NEUT # 3.9 x10^3uL (1.8-7.7); NEUT % 57 % (31-73); PLATELET COUNT 150 x10^3/uL (140-400); RED BLOOD COUNT 4.59 x10^6/uL (4.30-5.70); RED CELL DISTRIBUTION WIDTH 13.1 % (11.5-14.5); WHITE BLOOD COUNT 6.8 x10^3/uL (4.0-11.0)
[2020-11-28] MEDS ORDERED: CIPR500S2 PO (05:17)
[2020-11-28] MEDS ORDERED: ONDA4TAB7 PO (05:17)
[2020-11-28] MEDS ORDERED: TAMS0.4C97 PO (05:17)
[2020-11-28] MEDS ORDERED: HYDR-1179 PO (05:17)
[2020-11-28] MEDS ORDERED: CIPROFLOXACIN HCL 500 MG TABLET PO ONE (05:30)
[2020-11-28 05:40] VITALS: BP 120/62
== END 2020-11-28 05:43 | disposition home or self-care (01) ==
LOC: ER 02:26
DX: N20.0 Calculus of kidney (principal); R73.9 Hyperglycemia, unspecified; Z88.0 Allergy status to penicillin; Z88.5 Allergy status to narcotic agent
CPT/HCPCS: 36415; 74022; 74176; 80048; 80076; 80307; 81001; 82550; 83690; 84484; 85025; 93005; 96361; 96374; 96375; 99285; J1885; J2405; J3010; J3490; J7120